=== PATIENT | male | born 1965 | race Caucasian/White ===

== ENCOUNTER → 2017-03-14 21:18 | Outpatient (CLI) | payer OTHER | END | disposition home or self-care (01) | LOC: D.LABREF 21:18 | DX: Z13.9 Encounter for screening, unspecified (principal) ==

== ENCOUNTER → 2017-07-05 21:49 | Outpatient (CLI) | payer OTHER | END | disposition home or self-care (01) | LOC: D.LABREF 21:49 | DX: R53.83 Other fatigue (principal) ==

== ENCOUNTER → 2019-12-06 09:51 | Outpatient (CLI) | payer BC ==
--- NOTE | ~2019-12-06 | EC ---
PATIENT:YANNI GARCIA DATE OF SERVICE: 12/06/19 SEX: M MEDICAL RECORD: [id number] DATE OF : 63 LOCATION:[facility] AGE OF PATIENT: 54 ADMISSION DATE: 12/06/19 REFERRING PHYSICIAN: INTERPRETING PHYSICIAN: JENNY GUTIERRES MD ECHOCARDIOGRAM REPORT ECHO CHARGES 4 ECHO COMPLETE Date: 12/06/19 CLINICAL DIAGNOSIS: ABN EKG, ASSESS EF / VAVLES ECHOCARDIOGRAPHIC MEASUREMENTS (adult normal given) AC root (d.<3.7cm) 3.9 cm LV Septum d (<1.2 cm> 1.3 cm Valve Excursion 1.8 cm LV Septum (systole) 1.5 cm Left Atria (s.<4.0cm> 3.89 cm LVPW d(<1.2cm) 1.6 cm RV (d.<2.3cm) 3.6 cm LVPW (sytole) 1.7 cm LV diastole(<5.6CM) 5.5 cm MV E-F(>70mm/sec) cm LV systole 4.1 cm LVOT Diameter 1.7 cm MV exc.(>10mm) 1.6 cm Est.ejection fraction (50-75%) % DOPPLER: LVIT cm/sec A 88.0 cm/sec E 80.0 cm/sec LA cm/sec RVSP 21 mmHg LVOT 115 cm/sec AOP1/2T m/s Asc. Ao 140 cm/sec RVOT 82 cm/sec RA cm/sec PA 118 cm/sec AV Gradient Peak 7.80 mmHg AV Mean 4.00 mmHg AV Area 2.0 cm MV Gradient Peak 4.82 mmHg MV Mean 2.26 mmHg MV Area cm COMMENTS: Green End Worker: 2 GUSTAVO MCCAULEY Market Basket Maker: 1 Dr. Gutierres TAPE# PACS Pericardial Effusion N DATE OF SERVICE: 12/06/2019 FINDINGS: 1. Left ventricular chamber size is within normal limits. Left ventricular systolic function is normal. Overall ejection fraction estimated at 55%. 2. Left atrium, right atrium, and right ventricle chamber size is within normal limits. 3. Valvular structures have normal structure and motion. 4. Doppler interrogation only reveals trace tricuspid regurgitation, no other valvular insufficiency or stenosis. Pulmonary systolic pressure is estimated at ECHOCARDIOGRAM REPORT [id number] YANNI GARCIA 21 mmHg. 5. No evidence of pericardial effusion or left ventricular thrombus. TRANSINT:[id number] Voice Confirmation ID: [id number] DOCUMENT ID: [id number] JENNY GUTIERRES MD CC: [id number] DICTATION DATE: 12/06/191427 AWNING INSTALLER: 12/06/19 [address] [facility] [address] [place] [id number]
== END | disposition home or self-care (01) ==
LOC: D.HCCECHO 11-22 09:00
PROVIDERS: ATTEND Internal Medicine Interventional Cardiology
DX: I25.10 Atherosclerotic heart disease of native coronary artery without angina pectoris (principal)